=== PATIENT | male | born 1970 | race Caucasian/White ===

== ENCOUNTER 2016-09-05 10:32 | Emergency (ER) | payer OTHER ==
[2016-09-05 10:40] VITALS: BP 136/97
--- NOTE | 2016-09-05 11:10 | ER Document Report ---
HPI - HPI Patient complains to provider of: leg pain Onset: Other - past 2 days Onset/Duration: Gradual Quality of pain: Achy Pain Level: 0 Associated Symptoms: None Exacerbated by: Denies Relieved by: Denies Similar symptoms previously: Yes - h/o sciatica Recently seen / treated by doctor: No - DERM Skin Color: Normal Past Medical History - Social History Smoking Status: Never Smoker Family History: Reviewed & Not Pertinent Patient has suicidal ideation: No Patient has homicidal ideation: No Renal/ Medical History: Denies: Hx Peritoneal Dialysis Vertical Provider Document - CONSTITUTIONAL Agree With Documented VS: Yes Exam Limitations: No Limitations General Appearance: WD/WN, No Apparent Distress - INFECTION CONTROL TRAVEL OUTSIDE OF THE [place] IN LAST 30 DAYS: No - RESPIRATORY O2 Sat by Pulse Oximetry: 99 - CARDIOVASCULAR Pulses: Normal: Radial, Dorsalis pedis - BACK Back: Normal Inspection Notes: no evidence of Step-offs, deformities, wounds, scars. - MUSCULOSKELETAL/EXTREMETIES Musculoskeletal/Extremeties: MAEW, FROM, Non-Tender, No Edema - NEURO Level of Consciousness: Awake, Alert, Appropriate Motor/Sensory: No Motor Deficit, No Sensory Deficit - DERM Integumentary: Warm, Dry, No Rash Course - Re-evaluation Re-evalutation: 09/05/16 21:04 patient is a 45-year-old male who is hemodynamic stable, no distress afebrile. Presentation and physical exam findings did not show any evidence of underlying fracture, infection therefore I do not see any requirement for additional imaging given patient is able to ambulate without any difficulty. Patient to follow-up with primary care as needed. - Vital Signs Vital signs: Temp Pulse Resp BP Pulse Ox 98.7 F 106 H 18 136/97 H 99 09/05/16 10:39 09/05/16 10:39 09/05/16 10:39 09/05/16 10:39 09/05/16 10:39 Discharge - Discharge Clinical Impression: Leg pain Qualifiers: Laterality: right Qualified Code(s): M79.604 - Pain in right leg Condition: Good Disposition: HOME, SELF-CARE Instructions: Muscle Strain ([facility]) Additional Instructions: The quadriceps course down the front of your thigh from your hip to your knee. Tightness here may be one cause of knee pain or patella malalignment. Here's how you stretch your quads: Stand upright Step forward with your right leg Slowly bend your right knee keeping your left leg straight Continue to bend your right knee until a gentle stretch is felt on top of the thigh Hold for 5 seconds Return to the start position Repeat steps 1 - 6 five more times Perform with left leg forward Remember to stop the stretch if it causes increased pain. Follow up with [facility] next week if symptoms continue
== END 2016-09-05 11:37 | disposition home or self-care (01) ==
LOC: ER 10:32
DX: M79.604 Pain in right leg (principal)
CPT/HCPCS: 99283